=== PATIENT | female | born 1970 | race Caucasian/White ===

== ENCOUNTER 2018-04-07 23:18 | Emergency (ER) | payer BC ==
[~2018-04-07] VITALS: Ht 157.5 cm; Wt 110.2 kg
[~2018-04-07 23:18] MED LIST: PROP1TAB3 PO; [UNRECOGNIZED DRUG - CODE] PO
[2018-04-07 23:37] VITALS: BP_SYST 149
[2018-04-08] MEDS ORDERED: HYDROcodone/ACETAMIN 5-325 MG TAB (NORCO/ VICODIN) PO ONE
[2018-04-08] MEDS ORDERED: BACITRACIN 1 GM OINT TP ONE
[2018-04-08 00:25] VITALS: BP_SYST 136
== END 2018-04-08 00:25 | disposition home or self-care (01) ==
LOC: SED 23:18
DX: L03.011 Cellulitis of right finger (principal); F41.9 Anxiety disorder, unspecified; F32.9 Major depressive disorder, single episode, unspecified; M79.7 Fibromyalgia; Z88.1 Allergy status to other antibiotic agents
CPT/HCPCS: 99283

== ENCOUNTER 2019-04-26 13:47 | Emergency (ER) | payer BC ==
--- NOTE | 2019-04-26 13:55 | NUR ---
PT LEFT WITHOUT BEING SEEN BY TRIAGE NURSE OR MD
== END 2019-04-26 13:55 | disposition left against medical advice (07) ==
LOC: SED 13:47
DX: H57.89 Other specified disorders of eye and adnexa (principal); Z53.21 Procedure and treatment not carried out due to patient leaving prior to being seen by health care provider